=== PATIENT | male | born 1985 | race Hispanic/Latino ===

== ENCOUNTER 2018-01-08 13:11 | Emergency (ER) | payer MEDICAID, OTHER ==
[2018-01-08 13:12] VITALS: BMI 29.9
[2018-01-08] MEDS ORDERED: Lidocaine 1% Inj (20ml) INFIL ONE (13:38)
[2018-01-08] MEDS ORDERED: Lidocaine 2% MPF (5 ml) Inj ONE (13:45)
--- NOTE | 2018-01-08 13:46 | C.PDOC ---
History Of Present Illness <Olivia Newman - Last Filed: 01/08/18 14:32> <Alpesh Hall DO - Last Filed: 01/08/18 17:43> CC: Right posterior thigh abscess Patient is a 32 year old male with past medical history of asthma, who presents to the ED with right posterior thigh abscess that has been going on for 4 days. Patient denies any associated trauma. Patient reports that it started off as a small sized pimple that he was trying to drain, however, the size increase over the course of a few days with more erythema. Patient states that his wound has been draining with pus and blood over the past 2 days. Patient denies fever, chills, nausea, vomiting, night sweats or any difficulty with walking. (Olivia Newman) History Per: Patient History/Exam Limitations: no limitations Onset/Duration Of Symptoms: Days Current Symptoms Are (Timing): Still Present Severity: Moderate Pain Scale Rating Of: 7 <Olivia Newman - Last Filed: 01/08/18 14:32> <Alpesh Hall DO - Last Filed: 01/08/18 17:43> Time Seen by Provider: 01/08/18 13:28 Chief Complaint (Nursing): Abnormal Skin Integrity Past Medical History - Medical History PMH: Asthma Family History: States: Unknown Family Hx - Social History Hx Tobacco Use: No Hx Alcohol Use: No Hx Substance Use: Yes - Immunization History Hx Tetanus Toxoid Vaccination: Yes Hx Influenza Vaccination: No Hx Pneumococcal Vaccination: No <Olivia Newman - Last Filed: 01/08/18 14:32> Vital Signs: Last Vital Signs Temp 97.8 F 01/08/18 14:37 Pulse 87 01/08/18 14:37 Resp 16 01/08/18 14:37 BP 120/79 01/08/18 14:37 Pulse Ox 100 01/08/18 14:37 Review Of Systems Constitutional: Negative for: Fever, Chills Cardiovascular: Negative for: Chest Pain, Palpitations Respiratory: Negative for: Shortness of Breath, Wheezing Gastrointestinal: Negative for: Nausea, Vomiting, Abdominal Pain, Diarrhea Musculoskeletal: Positive for: Leg Pain (Right posterior thigh abcess ) Neurological: Negative for: Confusion, Seizures, Headache, Dizziness <Olivia Newman - Last Filed: 01/08/18 14:32> Physical Exam - Physical Exam Appears: Well Skin: Normal Color, Warm Head: Atraumatic, Normacephalic Eye(s): bilateral: EOMI Oral Mucosa: Moist Neck: Normal ROM Cardiovascular: Rhythm Regular Respiratory: Normal Breath Sounds Gastrointestinal/Abdominal: Normal Exam, Bowel Sounds, Soft Extremity: Normal ROM, Tenderness (Right posterior thigh ), Other (Right posterior thigh abscess 4X3cm ) Neurological/Psych: Oriented x3, Normal Speech, Normal Cognition <Olivia Newman E - Last Filed: 01/08/18 14:32> ED Course And Treatment O2 Sat by Pulse Oximetry: 97 <Olivia Newman E - Last Filed: 01/08/18 14:32> Disposition Discussed With : Alpesh Hall DO - Disposition Disposition Time: 14:19 <Olivia Newman - Last Filed: 01/08/18 14:32> <Alpesh Hall DO - Last Filed: 01/08/18 17:43> - Disposition Disposition: HOME/ ROUTINE Condition: GOOD Additional Instructions: Please discharge patient home Please keep wound dry Please follow up for packing changing in 2-3 days Please take the following antibiotics: 1. Bactrim 1 tab PO Q12H 2. Keflex 500mg PO Q12H Please return to the hospital if worsening or new symptoms such as fever, chills , or worsening wound size Prescriptions: Cephalexin [Keflex] 500 mg PO BID 7 Days #14 capsule Sulfamethoxazole/Trimethoprim [Bactrim DS Tab] 1 tab PO BID 7 Days #14 tab Instructions: Skin Abscess, Boil (DC), Abscess Incision and Drainage (DC) Forms: [facility] ([place]), General Discharge Instructions - Clinical Impression Clinical Impression: Abscess of skin - PA / [employer] / Resident Statement LEONID has reviewed & agrees with the documentation as recorded. LEONID has examined the patient and agrees with the treatment plan. <Alpesh Hall DO - Last Filed: 01/08/18 17:43>
[2018-01-08 14:39] VITALS: BP 120/79; PULSE 87; RESP 16; TEMP 97.8; O2SAT 100
== END 2018-01-08 14:39 | disposition home or self-care (01) ==
LOC: C.ER 13:11
DX: L02.415 Cutaneous abscess of right lower limb (principal)

== ENCOUNTER 2018-01-13 18:08 | Emergency (ER) | payer MEDICAID, OTHER ==
[2018-01-13 18:08] VITALS: BMI 29.9
--- NOTE | 2018-01-13 18:54 | C.PDOC ---
History Of Present Illness 32 year old male presents to the ED for wound check and packing removal. Patient was seen in the ED on 01/08/18 and underwent incision and drainage of an abscess to his right lateral leg. Patient reports symptoms have improved and denies fever, chills, discharge. Time Seen by Provider: 01/13/18 18:12 Chief Complaint (Nursing): Wound Check History Per: Patient History/Exam Limitations: no limitations Onset/Duration Of Symptoms: Days Ago (2) Current Symptoms Are (Timing): Better Location Of Injury: Right: Leg (lateral ) Quality Of Symptoms: denies: Draining Additional History Per: Patient Past Medical History Reviewed: Historical Data, Nursing Documentation, Vital Signs Vital Signs: Last Vital Signs Temp 97.9 F 01/13/18 19:08 Pulse 93 H 01/13/18 19:08 Resp 16 01/13/18 19:08 BP 133/84 01/13/18 19:08 Pulse Ox 96 01/13/18 19:08 - Medical History PMH: Asthma Surgical History: No Surg Hx Family History: States: Unknown Family Hx - Social History Hx Tobacco Use: No Hx Alcohol Use: No Hx Substance Use: Yes - Immunization History Hx Tetanus Toxoid Vaccination: Yes Hx Influenza Vaccination: No Hx Pneumococcal Vaccination: No Review Of Systems Constitutional: Negative for: Fever, Chills Skin: Positive for: Other (wound check and packing removal ) Physical Exam - Physical Exam Appears: Non-toxic, No Acute Distress Skin: Warm, Dry, Other (healing wound to lateral aspect of right leg. no erythema, drainage, or signs of infection ) Head: Atraumatic, Normacephalic Eye(s): bilateral: Normal Inspection Oral Mucosa: Moist Extremity: Normal ROM, Capillary Refill (less than 2 seconds ), No Swelling Pulses: Left Dorsalis Pedis: Normal, Right Dorsalis Pedis: Normal Neurological/Psych: Oriented x3, Normal Speech, Normal Cognition, Normal Motor, Normal Sensation Gait: Steady ED Course And Treatment O2 Sat by Pulse Oximetry: 96 (on RA) Pulse Ox Interpretation: Normal Medical Decision Making Medical Decision Making: Progress: Packing was removed from right lateral leg without difficulty. Patient tolerated well with no complications. Patient is stable for discharge with wound care instructions. Return to the ED if symptoms worsen. Disposition - Disposition Disposition: HOME/ ROUTINE Disposition Time: 18:52 Condition: STABLE Additional Instructions: return if worsened. Wash the wound twice a day with soap and water. Apply antibiotics cream. Instructions: Wound Care (DC) Forms: [facility] ([place]) - Clinical Impression Clinical Impression: Abscess packing removal, Wound check, abscess - PA / COPY READER / Resident Statement MD/DO has reviewed & agrees with the documentation as recorded. - Scribe Statement The provider has reviewed the documentation as recorded by the Scribe (Charisse Quiroz) All medical record entries made by the Scribe were at my direction and personally dictated by me. I have reviewed the chart and agree that the record accurately reflects my personal performance of the history, physical exam, medical decision making, and the department course for this patient. I have also personally directed, reviewed, and agree with the discharge instructions and disposition.
[2018-01-13 19:09] VITALS: BP 133/84; PULSE 93; RESP 16; TEMP 97.9; O2SAT 96
== END 2018-01-13 19:25 | disposition home or self-care (01) ==
LOC: C.ER 18:08
DX: Z48.00 Encounter for change or removal of nonsurgical wound dressing (principal)